=== PATIENT | male | born 1970 | race African-American/Black ===

== ENCOUNTER 2016-10-09 10:54 | Emergency (ER) | payer OTHER ==
[~2016-10-09] VITALS: Ht 172.7 cm; Wt 81.6 kg
[2016-10-09 11:37] LABS: PLATELET COUNT 204 K/uL (142-355)
[2016-10-09 11:42] LABS: POTASSIUM 2.8 mmol/L (3.6-5.2); SODIUM 136 mmol/L (136-145)
== END 2016-10-09 12:00 | disposition home or self-care (01) ==
LOC: ED 10:54
DX: M50.822 Other cervical disc disorders at C5-C6 level (principal); M47.892 Other spondylosis, cervical region; R20.9 Unspecified disturbances of skin sensation
CPT/HCPCS: 80053; 81000; 85027; 99283